=== PATIENT | male | born 1995 | race Native Hawaiian/Other Pacific Islander ===

== ENCOUNTER 2016-06-19 09:27 | Emergency (ER) | payer OTHER ==
[~2016-06-19] VITALS: Ht 175.3 cm; Wt 68.0 kg
[2016-06-19 09:39] VITALS: BP 115/48; TEMP 97.9
[2016-06-19 09:56] LABS: PLATELET COUNT 372 K/uL (142-355)
[2016-06-19 10:02] LABS: POTASSIUM 3.7 mmol/L (3.6-5.2); SODIUM 136 mmol/L (136-145)
== END 2016-06-19 10:55 | disposition home or self-care (01) ==
LOC: ED 09:27
DX: T59.811A Toxic effect of smoke, accidental (unintentional), initial encounter (principal); J70.5 Respiratory conditions due to smoke inhalation; Y92.098 Other place in other non-institutional residence as the place of occurrence of the external cause
CPT/HCPCS: 36415; 80053; 85027; 96374; 99284; J2930

== ENCOUNTER 2016-08-17 14:27 | Emergency (ER) | payer OTHER ==
[~2016-08-17] VITALS: Ht 175.3 cm; Wt 68.0 kg
[2016-08-17 14:38] VITALS: TEMP 98.1
[2016-08-17 16:01] VITALS: BP 128/82
== END 2016-08-17 16:01 | disposition home or self-care (01) ==
LOC: ED 14:27
DX: M42.04 Juvenile osteochondrosis of spine, thoracic region (principal)
CPT/HCPCS: 81000; 99283

== ENCOUNTER 2019-02-16 09:27 | Emergency (ER) | payer OTHER ==
[~2019-02-16] VITALS: Ht 175.3 cm; Wt 65.8 kg
[2019-02-16 11:05] VITALS: BP 137/76; TEMP 98.1
== END 2019-02-16 11:05 | disposition home or self-care (01) ==
LOC: ED 09:27
DX: H16.8 Other keratitis (principal)
CPT/HCPCS: 99283

== ENCOUNTER 2019-04-02 11:29 | Emergency (ER) | payer OTHER ==
[~2019-04-02] VITALS: Ht 175.3 cm; Wt 65.8 kg
[2019-04-02 14:04] VITALS: BP 135/85; TEMP 98.9
== END 2019-04-02 14:05 | disposition home or self-care (01) ==
LOC: ED 11:29
PROC: 0KQS0ZZ Repair Right Lower Leg Muscle, Open Approach (ICD-10-PCS; principal; 2019-04-02)
DX: S81.011A Laceration without foreign body, right knee, initial encounter (principal); W29.3XXA Contact with powered garden and outdoor hand tools and machinery, initial encounter
CPT/HCPCS: 90471; 90715; 99283

== ENCOUNTER 2019-10-21 11:11 | Emergency (ER) | payer OTHER ==
[~2019-10-21] VITALS: Ht 175.3 cm; Wt 65.8 kg
[2019-10-21 12:05] LABS: PLATELET COUNT 354 K/uL (142-355)
[2019-10-21 12:11] LABS: POTASSIUM 4.6 mmol/L (3.6-5.2)
[2019-10-21 12:34] VITALS: BP 124/64; TEMP 98.7
== END 2019-10-21 12:34 | disposition home or self-care (01) ==
LOC: ED 11:11
PROVIDERS: Emergency Medicine Emergency Medical Services
DX: R55 Syncope and collapse (principal)
CPT/HCPCS: 36415; 80053; 82550; 85027; 96360; 96365; 96375; 99284; J2405